=== PATIENT | female | born 1960 | race African-American/Black ===

== ENCOUNTER 2016-08-30 10:11 | Emergency (ER) | payer OTHER ==
[~2016-08-30] VITALS: Ht 175.3 cm; Wt 129.3 kg
[~2016-08-30 10:11] MED LIST: CARISOPRODOL 3350 MG PO; LOMOTIL TABLET1 EACH; NORCO 5-325 TA1 EACH PO; PENICILLIN VK500 M1 PO; PERCOCET 5-3251 EACH PO; SEROQUEL 100 M100 M2 PO; VIIBRYD20 MG PO; XANAX 1 MG TABLE1 MG PO
[2016-08-30 10:14] VITALS: BP 133/80
[2016-08-30] MEDS ORDERED: GLUCOPHAGE XR500 MG PO (10:16)
[2016-08-30] MEDS ORDERED: WELLBUTRIN SR150 MG PO (10:16)
[2016-08-30] MEDS ORDERED: COZAAR 50 MG TA50 M2 PO (10:17)
[2016-08-30] MEDS ORDERED: GABAPENTIN 100100 MG PO (10:17)
[2016-08-30] MEDS ORDERED: ZOLPIDEM TARTRA10 MG PO (10:17)
[2016-08-30] MEDS ORDERED: ADVAIR 250-501 EACH INH (10:17)
[2016-08-30] MEDS ORDERED: METOPROLOL SUCC50 MG PO (10:17)
[2016-08-30] MEDS ORDERED: OMEPRAZOLE 20 M20 M1 PO (10:17)
[2016-08-30] MEDS ORDERED: VENTOLIN HFA 1818 GM INH (10:17)
[2016-08-30] MEDS ORDERED: PRAZOSIN HCL1 MG PO (10:18)
[2016-08-30] MEDS ORDERED: LEVOTHYROXIN0.112 M1 PO (10:18)
[2016-08-30] MEDS ORDERED: SIMVASTATIN40 MG PO (10:18)
[2016-08-30] MEDS ORDERED: HYDROCHLOROTHIA25 M2 PO (10:18)
[2016-08-30] MEDS ORDERED: IBUPROFEN 800800 M1 PO (10:19)
[2016-08-30] MEDS ORDERED: VALIUM5 MG PO (10:19)
[2016-08-30] MEDS ORDERED: NAPROSYN500 MG PO (10:35)
== END 2016-08-30 10:48 | disposition home or self-care (01) ==
LOC: ER 10:11
DX: M25.511 Pain in right shoulder (principal); I10 Essential (primary) hypertension; K21.9 Gastro-esophageal reflux disease without esophagitis; F17.210 Nicotine dependence, cigarettes, uncomplicated

== ENCOUNTER 2017-01-06 14:52 | Emergency (ER) | payer OTHER ==
[~2017-01-06] VITALS: Ht 175.3 cm; Wt 131.1 kg
[~2017-01-06 14:52] MED LIST changes: +ADVAIR 250-501 EACH INH; +COZAAR 50 MG TA50 M2 PO; +GABAPENTIN 100100 MG PO; +GLUCOPHAGE XR500 MG PO; +HYDROCHLOROTHIA25 M2 PO; +IBUPROFEN 800800 M1 PO; +LEVOTHYROXIN0.112 M1 PO; +METOPROLOL SUCC50 MG PO; +NAPROSYN500 MG PO; +OMEPRAZOLE 20 M20 M1 PO; +PRAZOSIN HCL1 MG PO; +SIMVASTATIN40 MG PO; +VALIUM5 MG PO; +VENTOLIN HFA 1818 GM INH; +WELLBUTRIN SR150 MG PO; +ZOLPIDEM TARTRA10 MG PO
[2017-01-06 15:13] LABS: URINE BILIRUBIN NEGATIVE (Negative); URINE BLOOD TRACE (Negative); URINE COLOR YELLOW; URINE GLUCOSE-RANDOM* NEGATIVE (Negative); URINE KETONES NEGATIVE (Negative); URINE LEUKOCYTES-REFLEX 2+ (Negative); URINE PROTEIN (DIPSTICK) NEGATIVE (Negative); URINE UROBILINOGEN 0.2 E.U./dl (0.2-1.0)
[2017-01-06 15:23] LABS: CASTS None Seen /LPF (None Seen); CRYSTALS None Seen /LPF (None Seen); SQUAMOUS 4-10 Moderate /LPF (0-3); URINE RBC 0-2 Rare /HPF (0-2); URINE WBC-REFLEX 6-15 Few /HPF (0-5)
[2017-01-06] MEDS ORDERED: OMEPRAZOLE 20 M20 M1 PO (15:40)
[2017-01-06] MEDS ORDERED: ZOLPIDEM TARTRA10 MG PO (15:44)
[2017-01-06] MEDS ORDERED: VALIUM5 MG PO (15:44)
[2017-01-06] MEDS ORDERED: FLAGYL500 MG PO (15:56)
[2017-01-06] MEDS ORDERED: DOXYCYCLINE 10100 MG PO (15:56)
[2017-01-06 16:01] VITALS: BP 176/84
[2017-01-07 17:08] LABS: CHLAMYDIA TRACHOMATIS-PCR Negative (Negative); NEISSERIA GONORRHEA-PCR Negative (Negative)
== END 2017-01-06 15:56 | disposition home or self-care (01) ==
LOC: ER 14:52
PROVIDERS: Physician Assistant
DX: N72 Inflammatory disease of cervix uteri (principal); N73.9 Female pelvic inflammatory disease, unspecified; A59.9 Trichomoniasis, unspecified; I10 Essential (primary) hypertension; K21.9 Gastro-esophageal reflux disease without esophagitis; E89.0 Postprocedural hypothyroidism; F17.210 Nicotine dependence, cigarettes, uncomplicated

== ENCOUNTER 2018-12-19 13:14 | Emergency (ER) | payer OTHER ==
[~2018-12-19] VITALS: Ht 180.3 cm; Wt 113.4 kg
[~2018-12-19 13:14] MED LIST changes: +DOXYCYCLINE 10100 MG PO; +FLAGYL500 MG PO
[2018-12-19] MEDS ORDERED: MOBIC7.5 MG PO (14:27)
[2018-12-19 15:14] VITALS: BP 159/94
== END 2018-12-19 15:01 | disposition home or self-care (01) ==
LOC: ER 13:14
DX: S50.312A Abrasion of left elbow, initial encounter (principal); M25.512 Pain in left shoulder; I10 Essential (primary) hypertension; F17.210 Nicotine dependence, cigarettes, uncomplicated; E11.9 Type 2 diabetes mellitus without complications; E78.5 Hyperlipidemia, unspecified; K21.9 Gastro-esophageal reflux disease without esophagitis; Z90.89 Acquired absence of other organs; W18.39XA Other fall on same level, initial encounter; Y93.89 Activity, other specified; Y92.89 Other specified places as the place of occurrence of the external cause; Y99.8 Other external cause status